=== PATIENT | female | born 1955 | race Caucasian/White ===

== ENCOUNTER 2019-07-23 00:02 | Emergency (ER) | payer OTHER ==
[~2019-07-23] VITALS: Ht 165.1 cm; Wt 63.0 kg
[2019-07-23] MEDS ORDERED: LIDOCAINE HCL/EPINEPHRINE 1%-EPI 1:100,000 20 ML VIAL INFIL ONE (01:30)
[2019-07-23] MEDS ORDERED: TETANUS, DIPHTHERIA, PERTUSSIS VAC/PF 0.5ML (>7YR OLD) IM ONE ×2 (01:30→04:15)
[2019-07-23 01:35] LABS: BASOPHILS % 0.9 % (0.0-2.0); EOSINOPHILS % 1.1 % (0.0-5.0); HEMATOCRIT. 40.4 % (36.0-48.0); LYMPHOCYTES % 29.4 % (20.0-50.0); MEAN CORPUSCULAR HEMOGLOBIN 29.7 pg (28.0-32.0); MEAN CORPUSCULAR VOLUME 85.6 fL (81.0-99.0); MEAN PLATELET VOLUME 7.5 fl (7.4-10.4); MONOCYTES % 4.9 % (2.0-8.0); NEUTROPHILS % 63.7 % (40.0-76.0); PLATELET 305 x1000/uL (130-400); RED BLOOD CELL COUNT 4.72 mill/uL (4.2-5.4); RED CELL DISTRIBUTION WIDTH 12.4 % (11.6-14.6)
[2019-07-23 01:43] LABS: CHLORIDE 109 mEq/L (98-107)
[2019-07-23 01:48] LABS: ETHANOL BLOOD 249 mg/dL
[2019-07-23 03:59] LABS: *AMPHETAMINES SCREEN URINE NEGATIVE (NEGATIVE); *BARBITURATES SCREEN URINE NEGATIVE (NEGATIVE); *BENZODIAZEPINES SCREEN URINE NEGATIVE (NEGATIVE); *COCAINE SCREEN URINE NEGATIVE (NEGATIVE); CANNABINOID URINE SCREEN PRESUMTIVE POSITIVE (NEGATIVE)
[2019-07-23 04:00] LABS: METHADONE URINE SCREEN NEGATIVE (NEGATIVE); OPIATES URINE SCREEN NEGATIVE (NEGATIVE); PHENCYCLIDINE URINE SCREEN NEGATIVE (NEGATIVE)
[2019-07-23] MEDS ORDERED: ACETAMINOPHEN 325MG TABLET PO ONE (04:30)
[2019-07-23 06:38] LABS: PARTIAL THROMBOPLASTIN TIME 26.7 sec (23.4-31.0); PROTHROMBIN TIME 10.1 sec (9.6-11.0)
[2019-07-23 10:30] VITALS: BP 131/87
== END 2019-07-23 10:30 | disposition short-term general hospital (02) ==
LOC: ER 00:02 → CANBEDREQ 10:21 → ER 10:30
DX: S06.5X9A Traumatic subdural hemorrhage with loss of consciousness of unspecified duration, initial encounter (principal); S01.01XA Laceration without foreign body of scalp, initial encounter; R55 Syncope and collapse; W19.XXXA Unspecified fall, initial encounter; Y93.89 Activity, other specified; Y92.89 Other specified places as the place of occurrence of the external cause; Y99.8 Other external cause status
CPT/HCPCS: 12002; 36415; 70450; 80048; 80305; 80320; 84484; 85025; 85610; 85730; 90471; 90715; 93005; 99285; J3490; Z7610; G0480